=== PATIENT | male | born 1960 | race Caucasian/White ===

== ENCOUNTER 2024-09-01 20:22 | Inpatient (IN) | payer MEDICARE, BC ==
[~2024-09-01] VITALS: Ht 195.6 cm; Wt 93.0 kg
[2024-09-01 00:19] VITALS: BP 126/65; PULSE 65; RESP 18; TEMP 98.4; O2SAT 100
[2024-09-01 20:51] VITALS: TEMP 98
[2024-09-01 21:14] LABS: BASOPHILS % 0.1 % (0.0-1.0); EOSINOPHILS % 0.5 % (0.0-6.0); LYMPHOCYTES % 4.7 % (18.0-39.1); MONOCYTES % 6.6 % (4.4-11.3); NEUTROPHILS % 87.6 % (38.7-80.0); RED CELL DISTRIBUTION WIDTH 18.5 % (11.7-14.4)
[2024-09-01] MEDS: KETOROLAC TROMETHAMINE 30 MG/ML VIAL IV STA (21:15)
[2024-09-01 21:42] LABS: EST GLOMERULAR FILTRATION RATE 49.0 ML/MIN (>=60)
[2024-09-01] MEDS ORDERED: ACETAMINOPHEN 325 MG TAB PO STA (22:08)
[2024-09-01] MEDS ORDERED: SODIUM CHLORIDE 0.9% 1000ML 1,000 ML IV STA (22:08)
[2024-09-01] MEDS: ONDANSETRON HCL INJ 2MG/ML 2ML 2 MG/ML VIAL IV STA (23:11)
[2024-09-01] MEDS: Morphine 4mg INJECTION 4 MG/ML INJ IV STA (23:12)
[2024-09-01] MEDS: SODIUM CHLORIDE 0.9% 1000ML 1,000 ML IV SCH (23:13)
[2024-09-01 23:30] VITALS: PULSE 59; RESP 17
[2024-09-02] VITALS (9 sets, daily range): BP systolic 113–152; BP diastolic 37–92; PULSE 65–100; RESP 18–20; TEMP 97.7–98.9; O2SAT 97–100
[2024-09-02] MEDS: ACETAMINOPHEN 325 MG TAB PO PRN (01:05)
[2024-09-02] MEDS: SODIUM CHLORIDE 0.9% 250ML 250 ML IV ONE (03:30)
[2024-09-02] MEDS: ONDANSETRON HCL INJ 2MG/ML 2ML 2 MG/ML VIAL IV PRN (05:12)
[2024-09-02] MEDS: Morphine 4mg INJECTION 4 MG/ML INJ IV PRN (05:12)
[2024-09-02 05:54] LABS: BASOPHILS % 0.1 % (0.0-1.0); EOSINOPHILS % 0.3 % (0.0-6.0); LYMPHOCYTES % 0.7 % (18.0-39.1); MONOCYTES % 2.5 % (4.4-11.3); NEUTROPHILS % 95.6 % (38.7-80.0); RED CELL DISTRIBUTION WIDTH 18.4 % (11.7-14.4)
[2024-09-02 06:23] LABS: EST GLOMERULAR FILTRATION RATE 44.0 ML/MIN (>=60)
[2024-09-02 11:27] LABS: BAND NEUTROPHILS % (MANUAL) 16 %; EOSINOPHILS % (MANUAL) 1 % (0-7); NEUTROPHILS % (MANUAL) 82 % (40-74); REACTIVE LYMPHOCYTES 1
[2024-09-02 11:30] LABS: ELLIPTOCYTE, RBC MARKED; PLATELET ESTIMATE ADEQUATE; PLATELET MORPHOLOGY COMMENT NORMAL; RBC MORPHOLOGY COMMENT ABNORMAL
[2024-09-02 11:31] LABS: ROULEAU MODERATE
[2024-09-02] MEDS: HYDROMORPHONE 1MG/1ML INJ IV PRN (12:37)
[2024-09-02 15:26] LABS: % IRON SATURATION 8.0 % (15-50); LACTATE DEHYDROGENASE 334.0 IU/L (125-220)
[2024-09-03] VITALS (9 sets, daily range): BP systolic 137–177; BP diastolic 50–72; PULSE 61–80; RESP 18; TEMP 97.5–98; O2SAT 95–100
[2024-09-03] MEDS: METOCLOPRAMIDE HCL 10 MG/2ML VIAL IV SCH (06:09)
[2024-09-03 06:34] LABS: BASOPHILS % 0.3 % (0.0-1.0); EOSINOPHILS % 1.3 % (0.0-6.0); LYMPHOCYTES % 1.2 % (18.0-39.1); MONOCYTES % 2.5 % (4.4-11.3); NEUTROPHILS % 93.7 % (38.7-80.0); RED CELL DISTRIBUTION WIDTH 17.9 % (11.7-14.4)
[2024-09-03 07:09] LABS: EST GLOMERULAR FILTRATION RATE 58.0 ML/MIN (>=60)
[2024-09-03] MEDS: CEFTRIAXONE 2 GM in SODIUM CHLORIDE 0.9% 100 ML IV SCH (08:53)
[2024-09-03] MEDS ORDERED: DEXTROSE 50% SYRINGE 50 ML IV PRN (12:00)
[2024-09-03] MEDS: INSULIN LISPRO 100 UNIT/1 ML 3ML VIAL SQ SCH (12:19)
[2024-09-03] MEDS: HYDROMORPHONE 1MG/1ML INJ IV PRN (18:17)
[2024-09-04] VITALS (8 sets, daily range): BP systolic 147–177; BP diastolic 45–63; PULSE 60–71; RESP 18; TEMP 97.3–98.6; O2SAT 98–100
[2024-09-04 06:50] LABS: BASOPHILS % 0.1 % (0.0-1.0); EOSINOPHILS % 0.7 % (0.0-6.0); LYMPHOCYTES % 2.5 % (18.0-39.1); MONOCYTES % 2.9 % (4.4-11.3); NEUTROPHILS % 92.9 % (38.7-80.0); RED CELL DISTRIBUTION WIDTH 17.7 % (11.7-14.4)
[2024-09-04 07:24] LABS: EST GLOMERULAR FILTRATION RATE 97.0 ML/MIN (>=60)
[2024-09-04] MEDS: HEPARIN SOD (PORCINE) 5,000 UNIT/ML VIAL SC SCH (08:23)
[2024-09-04 08:24] LABS: FOLATE (REF LAB) >20.0 ng/mL (>3.0)
[2024-09-04] MEDS: SODIUM FERRIC GLUCONATE COMPLX 250 MG in SODIUM CHLORIDE 0.9% 100 ML IV SCH (08:27)
[2024-09-04] MEDS ORDERED: FENTANYL CITRATE/PF 100MCG/2 ML INJ ONE (12:39)
[2024-09-04] MEDS ORDERED: PROPOFOL IV EMULSION 10 MG/ML 20 ML VIAL ONE (12:39)
[2024-09-04] MEDS ORDERED: SEVOFLURANE INHAL SOLN 250 ML PEN BTL ONE (12:39)
[2024-09-04] MEDS ORDERED: LIDOCAINE HCL 2% LOCAL INJ 5 ML SDV VIAL INJ ONE (12:39)
[2024-09-04] MEDS ORDERED: ONDANSETRON HCL INJ 2MG/ML 2ML 2 MG/ML VIAL ONE (13:15)
[2024-09-04] MEDS ORDERED: FAMOTIDINE 20 MG/2 ML VIAL IV ONE (13:15)
[2024-09-04] MEDS: HYDRALAZINE HCL 20 MG/ML VIAL IV PRN (14:28)
[2024-09-04 14:32] LABS: HAPTOGLOBIN 327 mg/dL (32-363)
[2024-09-05] VITALS (7 sets, daily range): BP systolic 143–173; BP diastolic 52–69; PULSE 63–76; RESP 17–18; TEMP 98.1–98.8; O2SAT 98–100
[2024-09-05 07:17] LABS: EST GLOMERULAR FILTRATION RATE 98.0 ML/MIN (>=60)
[2024-09-05 07:31] LABS: BASOPHILS % 0.1 % (0.0-1.0); EOSINOPHILS % 2.1 % (0.0-6.0); LYMPHOCYTES % 7.8 % (18.0-39.1); MONOCYTES % 5.4 % (4.4-11.3); NEUTROPHILS % 84.2 % (38.7-80.0); RED CELL DISTRIBUTION WIDTH 18.0 % (11.7-14.4)
[2024-09-05] MEDS: AMLODIPINE BESYLATE 10 MG TAB PO SCH (09:21)
[2024-09-06] VITALS (7 sets, daily range): BP systolic 147–181; BP diastolic 53–71; PULSE 59–65; RESP 17–18; TEMP 97.7–98.6; O2SAT 100
[2024-09-06] MEDS: SODIUM CHLORIDE 0.9% 250ML 250 ML IV ONE (07:52)
[2024-09-06 11:45] LABS: BASOPHILS % 0.3 % (0.0-1.0); EOSINOPHILS % 1.8 % (0.0-6.0); LYMPHOCYTES % 10.2 % (18.0-39.1); MONOCYTES % 7.1 % (4.4-11.3); NEUTROPHILS % 80.0 % (38.7-80.0); RED CELL DISTRIBUTION WIDTH 17.2 % (11.7-14.4)
[2024-09-06 12:29] LABS: EST GLOMERULAR FILTRATION RATE 100.0 ML/MIN (>=60)
[2024-09-07] VITALS: BP 154/53; PULSE 58; RESP 18; TEMP 98.4; O2SAT 100
[2024-09-07 04:00] VITALS: BP 156/63; PULSE 59; RESP 18; TEMP 97.8; O2SAT 100
[2024-09-07 06:24] LABS: BASOPHILS % 0.2 % (0.0-1.0); EOSINOPHILS % 3.3 % (0.0-6.0); LYMPHOCYTES % 14.1 % (18.0-39.1); MONOCYTES % 7.7 % (4.4-11.3); NEUTROPHILS % 74.0 % (38.7-80.0); RED CELL DISTRIBUTION WIDTH 17.1 % (11.7-14.4)
[2024-09-07 07:03] LABS: EST GLOMERULAR FILTRATION RATE 99.0 ML/MIN (>=60)
[2024-09-07 07:33] VITALS: BP 169/62; PULSE 64; RESP 18; TEMP 98.1; O2SAT 100
[2024-09-07 09:26] VITALS: BP 169/62; PULSE 64; RESP 18; TEMP 98.1; O2SAT 100
[2024-09-07 11:12] VITALS: BP 163/82; PULSE 107; RESP 18; TEMP 98.5; O2SAT 100
[2024-09-07 14:57] VITALS: BP 159/61; PULSE 59; RESP 18; TEMP 98.2; O2SAT 100
== END 2024-09-07 19:20 | disposition home or self-care (01) | DRG 854 ==
LOC: ER 20:48 → ERHOLD 22:35 → MED/SURG2 09-02 00:01
PROVIDERS: ADMIT Internal Medicine; ATTEND Internal Medicine
PROC: 0QDP0ZZ Extraction of Left Metatarsal, Open Approach (ICD-10-PCS; principal; 2024-09-05)
PROC: 0QBP0ZX Excision of Left Metatarsal, Open Approach, Diagnostic (ICD-10-PCS; 2024-09-05)
PROC: 05HY33Z Insertion of Infusion Device into Upper Vein, Percutaneous Approach (ICD-10-PCS; 2024-09-05)
PROC: 3E04329 Introduction of Other Anti-infective into Central Vein, Percutaneous Approach (ICD-10-PCS; 2024-09-05)
PROC: 30233N1 Transfusion of Nonautologous Red Blood Cells into Peripheral Vein, Percutaneous Approach (ICD-10-PCS; 2024-09-05)
DX: A41.9 Sepsis, unspecified organism (principal); C90.00 Multiple myeloma not having achieved remission; L97.429 Non-pressure chronic ulcer of left heel and midfoot with unspecified severity; L03.116 Cellulitis of left lower limb; N17.9 Acute kidney failure, unspecified; M00.9 Pyogenic arthritis, unspecified; M86.8X7 Other osteomyelitis, ankle and foot; E11.621 Type 2 diabetes mellitus with foot ulcer; I12.9 Hypertensive chronic kidney disease with stage 1 through stage 4 chronic kidney disease, or unspecified chronic kidney disease; E11.22 Type 2 diabetes mellitus with diabetic chronic kidney disease; N18.31 Chronic kidney disease, stage 3a; D63.1 Anemia in chronic kidney disease; D63.8 Anemia in other chronic diseases classified elsewhere; E11.65 Type 2 diabetes mellitus with hyperglycemia; R11.2 Nausea with vomiting, unspecified; K21.9 Gastro-esophageal reflux disease without esophagitis; B96.89 Other specified bacterial agents as the cause of diseases classified elsewhere; K29.70 Gastritis, unspecified, without bleeding; E11.51 Type 2 diabetes mellitus with diabetic peripheral angiopathy without gangrene; E11.69 Type 2 diabetes mellitus with other specified complication; B95.2 Enterococcus as the cause of diseases classified elsewhere; Z92.21 Personal history of antineoplastic chemotherapy; Z95.820 Peripheral vascular angioplasty status with implants and grafts
CPT/HCPCS: 36415; 36569; 71045; 80053; 82607; 82728; 82746; 82948; 83010; 83540; 83605; 83615; 83735; 84466; 85025; 85045; 86850; 86870; 86880; 86900; 86905; 86920; 86922; 87040; 87071; 87075; 87086; 87186; 87205; 88307; 88311; 93925; 97605; 99001; 99252; 99284; J0360; J0696; J1171; J1308; J1644; J1885; J2003; J2270; J2405; J2470; J2543; J2765; J2916; J7030; J7050; P9016

== ENCOUNTER → 2024-09-10 | Outpatient (REF) | payer BC, MEDICARE | LOC: WCC 14:47 | PROVIDERS: ATTEND Plastic Surgery | DX: E11.621 Type 2 diabetes mellitus with foot ulcer (principal); L97.423 Non-pressure chronic ulcer of left heel and midfoot with necrosis of muscle ==

== ENCOUNTER → 2024-09-11 | Outpatient (REF) | payer BC, MEDICARE | LOC: WCC 12:30 | PROVIDERS: ATTEND Plastic Surgery | DX: E11.621 Type 2 diabetes mellitus with foot ulcer (principal); L97.423 Non-pressure chronic ulcer of left heel and midfoot with necrosis of muscle ==

== ENCOUNTER → 2024-09-13 | Outpatient (REF) | payer BC, MEDICARE | LOC: WCC 12:34 | PROVIDERS: ATTEND Plastic Surgery | DX: E11.621 Type 2 diabetes mellitus with foot ulcer (principal); L97.423 Non-pressure chronic ulcer of left heel and midfoot with necrosis of muscle ==

== ENCOUNTER → 2024-09-17 | Outpatient (REF) | payer BC, MEDICARE | LOC: WCC 09:04 | PROVIDERS: ATTEND Plastic Surgery | DX: E11.621 Type 2 diabetes mellitus with foot ulcer (principal); L97.423 Non-pressure chronic ulcer of left heel and midfoot with necrosis of muscle ==

== ENCOUNTER → 2024-09-19 | Outpatient (REF) | payer BC, MEDICARE | LOC: WCC 09:00 | PROVIDERS: ATTEND Plastic Surgery | DX: E11.621 Type 2 diabetes mellitus with foot ulcer (principal); L97.423 Non-pressure chronic ulcer of left heel and midfoot with necrosis of muscle ==

== ENCOUNTER → 2024-09-21 | Outpatient (REF) | payer BC, MEDICARE | LOC: WCC 09:11 | PROVIDERS: ATTEND Plastic Surgery | DX: E11.621 Type 2 diabetes mellitus with foot ulcer (principal); L97.423 Non-pressure chronic ulcer of left heel and midfoot with necrosis of muscle ==

== ENCOUNTER → 2024-09-26 | Outpatient (REF) | payer BC, MEDICARE | LOC: WCC 15:11 | PROVIDERS: ATTEND Plastic Surgery | DX: E11.621 Type 2 diabetes mellitus with foot ulcer (principal); L97.423 Non-pressure chronic ulcer of left heel and midfoot with necrosis of muscle ==

== ENCOUNTER → 2024-09-28 | Outpatient (REF) | payer BC, MEDICARE | LOC: WCC 14:15 | PROVIDERS: ATTEND Plastic Surgery | DX: E11.621 Type 2 diabetes mellitus with foot ulcer (principal); L97.423 Non-pressure chronic ulcer of left heel and midfoot with necrosis of muscle ==

== ENCOUNTER → 2024-10-01 | Outpatient (REF) | payer BC, MEDICARE | LOC: WCC 09:09 | PROVIDERS: ATTEND Plastic Surgery | DX: E11.621 Type 2 diabetes mellitus with foot ulcer (principal); L97.423 Non-pressure chronic ulcer of left heel and midfoot with necrosis of muscle ==

== ENCOUNTER → 2024-10-02 | Outpatient (REF) | payer BC, MEDICARE | LOC: WCC 09:03 | PROVIDERS: ATTEND Plastic Surgery | DX: E11.621 Type 2 diabetes mellitus with foot ulcer (principal); L97.423 Non-pressure chronic ulcer of left heel and midfoot with necrosis of muscle ==

== ENCOUNTER → 2024-10-04 | Outpatient (REF) | payer BC, MEDICARE | LOC: WCC 09:13 | PROVIDERS: ATTEND Plastic Surgery | DX: E11.621 Type 2 diabetes mellitus with foot ulcer (principal); L97.423 Non-pressure chronic ulcer of left heel and midfoot with necrosis of muscle ==

== ENCOUNTER → 2024-10-08 | Outpatient (REF) | payer MEDICARE, BC | LOC: WCC 09:26 | PROVIDERS: ATTEND Plastic Surgery | DX: E11.621 Type 2 diabetes mellitus with foot ulcer (principal); L97.423 Non-pressure chronic ulcer of left heel and midfoot with necrosis of muscle ==

== ENCOUNTER → 2024-10-10 | Outpatient (REF) | payer MEDICARE, BC | LOC: WCC 10:39 | PROVIDERS: ATTEND Plastic Surgery | DX: E11.621 Type 2 diabetes mellitus with foot ulcer (principal); L97.423 Non-pressure chronic ulcer of left heel and midfoot with necrosis of muscle ==

== ENCOUNTER → 2024-10-12 | Outpatient (REF) | payer MEDICARE, BC | LOC: WCC 13:52 | PROVIDERS: ATTEND Plastic Surgery | DX: E11.621 Type 2 diabetes mellitus with foot ulcer (principal); L97.424 Non-pressure chronic ulcer of left heel and midfoot with necrosis of bone ==

== ENCOUNTER → 2024-10-15 | Outpatient (REF) | payer MEDICARE, BC | LOC: WCC 08:38 | PROVIDERS: ATTEND Plastic Surgery | DX: E11.621 Type 2 diabetes mellitus with foot ulcer (principal); L97.424 Non-pressure chronic ulcer of left heel and midfoot with necrosis of bone ==

== ENCOUNTER → 2024-10-17 | Outpatient (REF) | payer MEDICARE, BC ==
[~2024-10-17] MED LIST: MINERAL OIL/PETROLAT/GLYCERI 6OZ BTL ONE
== END ==
LOC: WCC 12:57
PROVIDERS: ATTEND Plastic Surgery
DX: E11.621 Type 2 diabetes mellitus with foot ulcer (principal); L97.424 Non-pressure chronic ulcer of left heel and midfoot with necrosis of bone

== ENCOUNTER → 2024-10-19 | Outpatient (REF) | payer MEDICARE, BC | LOC: WCC 12:45 | PROVIDERS: ATTEND Plastic Surgery | DX: E11.621 Type 2 diabetes mellitus with foot ulcer (principal); L97.424 Non-pressure chronic ulcer of left heel and midfoot with necrosis of bone ==

== ENCOUNTER → 2024-10-23 | Outpatient (REF) | payer MEDICARE, BC | LOC: WCC 10:43 | PROVIDERS: ATTEND Plastic Surgery | DX: E11.621 Type 2 diabetes mellitus with foot ulcer (principal); L97.424 Non-pressure chronic ulcer of left heel and midfoot with necrosis of bone ==

== ENCOUNTER → 2024-10-26 | Outpatient (REF) | payer BC, MEDICARE | LOC: WCC 12:30 | PROVIDERS: ATTEND Plastic Surgery | DX: E11.621 Type 2 diabetes mellitus with foot ulcer (principal); L97.424 Non-pressure chronic ulcer of left heel and midfoot with necrosis of bone ==

== ENCOUNTER → 2024-10-29 | Outpatient (REF) | payer BC, MEDICARE | LOC: WCC 15:33 | PROVIDERS: ATTEND Plastic Surgery | DX: E11.621 Type 2 diabetes mellitus with foot ulcer (principal); L97.424 Non-pressure chronic ulcer of left heel and midfoot with necrosis of bone ==

== ENCOUNTER → 2024-10-31 | Outpatient (REF) | payer BC, MEDICARE | LOC: WCC 13:25 | PROVIDERS: ATTEND Plastic Surgery | DX: E11.621 Type 2 diabetes mellitus with foot ulcer (principal); L97.424 Non-pressure chronic ulcer of left heel and midfoot with necrosis of bone ==

== ENCOUNTER → 2024-11-02 | Outpatient (REF) | payer MEDICARE, BC | LOC: WCC 08:39 | PROVIDERS: ATTEND Plastic Surgery | DX: E11.621 Type 2 diabetes mellitus with foot ulcer (principal); L97.424 Non-pressure chronic ulcer of left heel and midfoot with necrosis of bone ==

== ENCOUNTER → 2024-11-05 | Outpatient (REF) | payer MEDICARE, BC | LOC: WCC 15:20 | PROVIDERS: ATTEND Plastic Surgery | DX: E11.621 Type 2 diabetes mellitus with foot ulcer (principal); L97.424 Non-pressure chronic ulcer of left heel and midfoot with necrosis of bone ==

== ENCOUNTER → 2024-11-08 | Outpatient (REF) | payer MEDICARE, BC | LOC: WCC 11:13 | PROVIDERS: ATTEND Internal Medicine Infectious Disease | DX: E11.621 Type 2 diabetes mellitus with foot ulcer (principal); L97.424 Non-pressure chronic ulcer of left heel and midfoot with necrosis of bone ==

== ENCOUNTER → 2024-11-12 | Outpatient (REF) | payer MEDICARE, BC | LOC: WCC 15:30 | PROVIDERS: ATTEND Plastic Surgery | DX: E11.621 Type 2 diabetes mellitus with foot ulcer (principal); L97.424 Non-pressure chronic ulcer of left heel and midfoot with necrosis of bone ==